=== PATIENT | female | born 1960 | race Caucasian/White ===

== ENCOUNTER 2019-02-28 18:57 | Emergency (ER) | payer OTHER ==
[~2019-02-28] VITALS: Ht 157.5 cm; Wt 86.2 kg
--- NOTE | 2019-02-28 19:03 | NUR ---
PT GABRIELLA ALS. TAKEN TO BED 8
[2019-02-28 19:22] VITALS: BP 91/45
--- NOTE | 2019-02-28 19:24 | NUR ---
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 PT DENIES LOC/FALLS. ON EMS ARRIVAL PT WAS DIAPHORETIC, HYPOTENSIVE 67 SYSTOLIC. DENIES NVD/CP/SOB. BS 108. PT A/OX4 ON ARRIVAL TO FACILITY AND IS 91/45 AFTER 500 ML NSS BOLUS. 20 L HAND STARTED BY EMS. BED IS DOWN, LOCKED, BED RAIL X 1, ERMD NOTIFIED. HX---HYPOTHYROID, HTN MEDS---UNK
[2019-02-28] MEDS ORDERED: NACL 0.9% 1,000 ML IV SCH (19:36)
--- NOTE | 2019-02-28 19:43 | NUR ---
XRAY AT BEDSIDE
--- NOTE | 2019-02-28 19:52 | NUR ---
NEW BP IS 111/52
--- NOTE | 2019-02-28 20:37 | NUR ---
ORTHOSTATIC VITALS NEGATIVE
--- NOTE | 2019-02-28 20:51 | NUR ---
LAB AT BEDSIDE
[2019-02-28 20:53] LABS: APPEARANCE,URINE CLEAR (CLEAR); BILIRUBIN,URINE NEGATIVE (NEGATIVE); BLOOD, URINE NEGATIVE (NEGATIVE); COLOR,URINE YELLOW (YELLOW); LEUKOCYTE ESTERASE ,URINE NEGATIVE (NEGATIVE); NITRITE, URINE NEGATIVE (NEGATIVE); PH,URINE 6.5 (5.0-9.0); UGLUCOSE NEGATIVE (NEGATIVE)
--- NOTE | 2019-02-28 20:59 | NUR ---
NEW BP IS 103/50
--- NOTE | 2019-02-28 21:01 | NUR ---
REPORT RECEIVED FROM MORTEZA CASE
--- NOTE | 2019-02-28 21:02 | NUR ---
REPORT GIVEN TO LIZ CASE
[2019-02-28 21:05] LABS: BASOPHILS # (AUTO) 0.2 K/uL (0.00-0.22); EOSINOPHILS # (AUTO) 0.3 K/uL (0-0.4); EOSINOPHILS % (AUTO) 2.1 % (0.0-4.0); HEMATOCRIT 34.1 % (36-48); HEMOGLOBIN 11.4 g/dL (12.0-16.0); LYMPHOCYTES # (AUTO) 1.6 K/uL (2.5-16.5); LYMPHOCYTES % (AUTO) 10.4 % (20.5-51.1); MEAN CORPUSCULAR HEMOGLOBIN 31 pg (27-31); MEAN CORPUSCULAR HGB CONC 33 g/dL (33-37); MEAN CORPUSCULAR VOLUME 92.3 fL (80-94); MONOCYTES # (AUTO) 0.6 K/uL (0.8-1.0); MONOCYTES % (AUTO) 3.9 % (1.7-9.3); NEUTROPHILS # (AUTO) 12.7 K/uL (1.8-7.7); NEUTROPHILS % (AUTO) 82.6 % (42.2-75.2); PLATELET COUNT (AUTO) 248 K/uL (140-450); RED BLOOD CELL COUNT(AUTO) 3.69 MIL/uL (4.20-5.40); RED CELL DISTRIBUTION WIDTH 13.7 % (11.6-13.7); WHITE BLOOD COUNT (AUTO) 15.4 K/uL (4.8-10.8)
[2019-02-28 21:10] LABS: RBC,URINE 0-5 /HPF (0-5); WBC,URINE 0-5 /HPF (0-5)
[2019-02-28 21:27] LABS: ANION GAP 12.2 (8-16); POTASSIUM 3.2 mmol/L (3.5-5.1)
[2019-02-28 21:28] LABS: PROTHROMBIN TIME 10.4 secs (10.8-13.4)
[2019-02-28 21:42] LABS: ALBUMIN 3.6 g/dL (3.4-5.0); TOTAL BILIRUBIN 0.2 mg/dL (0.0-1.0)
[2019-02-28 22:11] LABS: CKMB RELATIVE INDEX 1.1 (0.0-2.5); CREATINE KINASE MB 9.7 ng/mL (0-3.6)
--- NOTE | 2019-02-28 22:12 | NUR ---
Dr. Johnson evaluating patient at bedside.
[2019-02-28] MEDS ORDERED: POTASSIUM CHLORIDE 10 MEQ TABER PO ONE (22:25)
[2019-02-28 22:44] VITALS: BP 114/79
--- NOTE | 2019-02-28 22:44 | NUR ---
Patient discharged with v/s stable. Written and verbal after care instructions given and explained. Patient alert, oriented and verbalized understanding of instructions. Ambulatory with steady gait. All questions addressed prior to discharge. ID band removed. Patient advised to follow up with PMD. Rx of IMODIUM AND ZOFRAN given. Patient educated on indication of medication including possible reaction and side effects. Opportunity to ask questions provided and answered.
== END 2019-02-28 22:44 | disposition home or self-care (01) ==
LOC: MED 18:57
DX: I95.9 Hypotension, unspecified (principal); E86.0 Dehydration; R19.7 Diarrhea, unspecified; I10 Essential (primary) hypertension; J45.909 Unspecified asthma, uncomplicated; F17.210 Nicotine dependence, cigarettes, uncomplicated
CPT/HCPCS: 36415; 71045; 80053; 81001; 82550; 82553; 83605; 83880; 84484; 85025; 85610; 85730; 87040; 87086; 93005; 96360; 99284; J7030; Q0092